=== PATIENT | female | born 1950 | race Caucasian/White ===

== ENCOUNTER 2017-08-10 04:10 | Observation (INO) | payer OTHER ==
[2017-08-10] VITALS (11 sets, daily range): BP systolic 110–148; BP diastolic 57–83; PULSE 55–97; RESP 16–20; TEMP 97.9–98.1; O2SAT 97–100
[~2017-08-10] VITALS: Ht 160 cm; Wt 80.0 kg
[2017-08-10] MEDS ORDERED: LEVO25TA4 PO (04:18)
[2017-08-10] MEDS ORDERED: LISI10TA3 PO (04:18)
[2017-08-10 05:22] LABS: AUTOMATED NEUTROPHIL # 4.1 TH/MM3 (1.8-7.7); BASOPHIL % 0.4 % (0.0-2.0); EOSINOPHIL % 0.7 % (0.0-4.0); HEMATOCRIT 41.6 % (35.0-46.0); HEMO FLAGS DIFF FINAL; LYMPH % 21.1 % (9.0-44.0); LYMPHOCYTE # 1.2 TH/MM3 (1.0-4.8); MEAN CELL VOLUME 96.3 FL (80.0-100.0); MEAN CORPUSCULAR HEMOGLOBIN 32.2 PG (27.0-34.0); MEAN CORPUSCULAR HGB CONC 33.4 % (32.0-36.0); MONO % 4.4 % (0.0-8.0); NEUT % 73.4 % (16.0-70.0); PLATELET COUNT 213 TH/MM3 (150-450); RED BLOOD COUNT 4.32 MIL/MM3 (4.00-5.30); RED CELL DISTRIBUTION WIDTH 13.3 % (11.6-17.2); WHITE BLOOD COUNT 5.6 TH/MM3 (4.0-11.0)
[2017-08-10] MEDS ORDERED: PANTOPRAZOLE SODIUM 40 MG VIAL IV PUSH ONE (05:30)
[2017-08-10] MEDS ORDERED: LORazepam 0.5 MG TAB PO ONE (05:30)
--- NOTE | 2017-08-10 05:32 | PD ---
HPI Chief Complaint: Medical Clearance Time Seen by Provider: 04:30 Travel History International Travel<30 days: No Contact w/Intl Traveler<30days: No Traveled to known affect area: No History of Present Illness HPI Patient is a 67-year-old female who has been having domestic trouble with her daughter. Patient was taking care of her daughter's children while her daughter was on vacation. Apparently there was issues and the teenagers were upset at the limits that the patient was placing on them .. so they called their mother who was on vacation , who then apparently text the children to tell the patient (grandmothr) to get out of the house and leave the kids alone. Patient says she has hypertension and is on lisinopril 10 mg by mouth but the last few days her pressure is been out of control due to the stress that she is having with her daughter and grandchildren . She does not take anything else for her stress or BP . Once long ago she was having stress and they gave her a prescription that made her feel horrible so she threw it away. She does not know what the name of that pill was for her stress... tonight she did not take anything to help relieve her symptoms and her blood pressure she reports diastolic was 110 but she did not take an extra dose or any anything to control her pressure, nor her anxiety ..she comes to ER still having the same symptoms pressure in her chest headache and feeling of palpitations She also feels emotionally stressed. Denies diabetes and she has never had a stress test , no family history of CAD PFSH Past Medical History Hypertension: Yes Dilation and Curettage (D&C): Yes Tubal Ligation: Yes Social History Alcohol Use: Yes Tobacco Use: No Substance Use: No Allergies-Medications (Allergen,Severity, Reaction): Coded Allergies: No Known Allergies (Unverified , 08/10/17) Reported Meds & Prescriptions Reported Meds & Active Scripts Active Buspirone (Buspirone HCl) 5 Mg Tab 5 Mg PO BID Reported Levothyroxine (Levothyroxine Sodium) Unknown Strength Tab Unknown Dose PO DAILY Lisinopril 10 Mg Tab 10 Mg PO DAILY Review of Systems Except as stated in HPI: all other systems reviewed are Neg Cardiovascular: Positive: Chest Pain or Discomfort, Palpitations Physical Exam Narrative GENERAL: On toxic awake alert cooperative conversant SKIN: Warm and dry. HEAD: Atraumatic. Normocephalic. EYES: Pupils equal and round. No scleral icterus. No injection or drainage. ENT: No nasal bleeding or discharge. Mucous membranes pink and moist. NECK: Trachea midline. No JVD. CARDIOVASCULAR: Regular rate and rhythm. Regular rate and rhythm there is one PAC on her EKG but auscultating her heart I do not hear any premature atrial contractions RESPIRATORY: No accessory muscle use. Clear to auscultation. Breath sounds equal bilaterally. GASTROINTESTINAL: Abdomen soft, non-tender, nondistended. Hepatic and splenic margins not palpable. MUSCULOSKELETAL: Extremities without clubbing, cyanosis, or edema. No obvious deformities. NEUROLOGICAL: Awake and alert. No obvious cranial nerve deficits. Motor grossly within normal limits. Five out of 5 muscle strength in the arms and legs. Normal speech. PSYCHIATRIC: Appropriate mood and affect; insight and judgment normal. Data Data Last Documented VS Orders Orders Aspirin Chew (Aspirin Chew) (08/10/17 09:00) Complete Blood Count With Diff (08/10/17 05:00) Comprehensive Metabolic Panel (08/10/17 05:00) Troponin I (08/10/17 05:00) Lipase (08/10/17 05:00) Lorazepam (Ativan) (08/10/17 05:30) Pantoprazole Inj (Protonix Inj) (08/10/17 05:30) Place In Observation (08/10/17 06:24) Activity Bed Rest With Brp (08/10/17 06:24) Vital Signs (Adult) Q4H (08/10/17 06:24) Cardiac Rhythm .As Directed (08/10/17 06:24) Notify Dr: Other .PRN (08/10/17 06:24) Notify Dr. Parameters (08/10/17 06:24) Resp Oxygen Nasal Cannula (08/10/17 ) Electrocardiogram (08/10/17 04:30) Electrocardiogram (08/10/17 07:30) ^ Obtain (08/10/17 06:24) Sodium Chloride 0.9% Flush (Ns Flush) (08/10/17 06:30) Sodium Chloride 0.9% Flush (Ns Flush) (08/10/17 09:00) Ondansetron Inj (Zofran Inj) (08/10/17 06:30) Famotidine (Pepcid) (08/10/17 09:00) Cutting Machine Operator / Telemetry KENIA.Q8H (08/10/17 06:24) Admit Order (Ed Use Only) (08/10/17 06:34) Labs Laboratory Tests Test 08/10/17 05:00 White Blood Count 5.6 TH/MM3 Red Blood Count 4.32 MIL/MM3 Hemoglobin 13.9 GM/DL Hematocrit 41.6 % Mean Corpuscular Volume 96.3 FL Mean Corpuscular Hemoglobin 32.2 PG Mean Corpuscular Hemoglobin Concent 33.4 % Red Cell Distribution Width 13.3 % Platelet Count 213 TH/MM3 Mean Platelet Volume 7.7 FL Neutrophils (%) (Auto) 73.4 % Lymphocytes (%) (Auto) 21.1 % Monocytes (%) (Auto) 4.4 % Eosinophils (%) (Auto) 0.7 % Basophils (%) (Auto) 0.4 % Neutrophils # (Auto) 4.1 TH/MM3 Lymphocytes # (Auto) 1.2 TH/MM3 Monocytes # (Auto) 0.2 TH/MM3 Eosinophils # (Auto) 0.0 TH/MM3 Basophils # (Auto) 0.0 TH/MM3 CBC Comment DIFF FINAL Differential Comment Blood Urea Nitrogen 14 MG/DL Creatinine 0.72 MG/DL Random Glucose 101 MG/DL Total Protein 7.5 GM/DL Albumin 4.0 GM/DL Calcium Level 9.0 MG/DL Alkaline Phosphatase 76 U/L Aspartate Amino Transf (AST/SGOT) 38 U/L Alanine Aminotransferase (ALT/SGPT) 46 U/L Total Bilirubin 0.5 MG/DL Sodium Level 141 MEQ/L Potassium Level 3.7 MEQ/L Chloride Level 105 MEQ/L Carbon Dioxide Level 27.8 MEQ/L Anion Gap 8 MEQ/L Estimat Glomerular Filtration Rate 80 ML/MIN Troponin I LESS THAN 0.02 NG/ML Lipase 94 U/L [facility] Medical Decision Making Medical Screen Exam Complete: Yes Emergency Medical Condition: Yes Interpretation(s) EKG NSR with 1 PAC rate 84 BPM Differential Diagnosis Patient is having an anxiety attack versus stress reaction versus ischemic myocardial event versus pneumonia his other Narrative Course EKG is normal sinus rhythm exam is benign heart regular rate and rhythm lungs clear to auscultation BP is 148/72 heart rate was 65 BPM and trop negative , Diagnosis Primary Impression: Stress reaction Additional Impression: Hypertension Qualified Codes: I10 - Essential (primary) hypertension Admitting Information Admitting Physician Requests: Observation Scripts Buspirone (Buspirone) 5 Mg Tab 5 MG PO BID for Anxiety, #20 TAB 1 Refill Prov: Jamie Corbett MD 08/10/17 Condition: Stable Jamie Corbett MD Aug 10, 2017 05:32
[2017-08-10 05:44] LABS: ANION GAP 8 MEQ/L (5-15); AST (GOT) 38 U/L (15-37); BICARBONATE 27.8 MEQ/L (21.0-32.0); BLOOD UREA NITROGEN 14 MG/DL (7-18); CHLORIDE 105 MEQ/L (98-107); GLOMERULAR FILTRATION RATE 80 ML/MIN (>89); POTASSIUM 3.7 MEQ/L (3.5-5.1); SODIUM (NA) 141 MEQ/L (136-145)
[2017-08-10 05:46] LABS: ALT (GPT) 46 U/L (10-53)
[2017-08-10 05:50] LABS: ALKALINE PHOSPHATASE 76 U/L (45-117); TOTAL BILIRUBIN ADULT 0.5 MG/DL (0.2-1.0)
[2017-08-10] MEDS ORDERED: SODIUM CHLORIDE 0.9% FLUSH 10 ML FLUSH IV FLUSH PRN (06:30)
[2017-08-10] MEDS ORDERED: ONDANSETRON HCL 4 MG/2 ML VIAL IV PUSH PRN (06:30)
[2017-08-10] MEDS ORDERED: BUSP5TAB PO (06:33)
[2017-08-10] MEDS ORDERED: NITROGLYCERIN 0.4 MG SL 25 TABS/BTL SL PRN (08:00)
[2017-08-10] MEDS ORDERED: ACETAMINOPHEN 500 MG CPLT PO PRN (08:00)
[2017-08-10] MEDS ORDERED: ASPIRIN 81 MG CHEW TAB CHEW SCH (09:00)
--- NOTE | 2017-08-10 09:01 | HHI.HP ---
HPI Primary Care Physician No Primary Care Physician Chief Complaint chest pain History of Present Illness 67-year-old female with history of hypertension presents to emergency room for further evaluation of chest pain. Onset 3 AM. States she was not sleeping well last night. Location left and right anterior chest. Characterized as "discomfort." Difficult for her to describe pain. Severity moderate. Radiation to left side neck. Duration one hour. Associated symptoms included nausea and "shaking." Denied vomiting, dyspnea, or diaphoresis. Precipitating factors she relates to current situational stress causing blood pressure to be elevated. No known relieving factors, stating discomfort went away after blood pressure within normal limits. Review of Systems General: No fatigue,weakness, fever, chills, recent illness, or change in appetite. Has been in her general state of health. HEENT: No [place], no vision changes, no nasal congestion or drainage, no dysphasia CV: As stated above. No current chest pain, pressure, or discomfort. No palpitations or dizziness. RESP: No SOB, cough, wheeze, or recent URI. GI: No nausea, vomiting, bowel changes, diarrhea, constipation, pain, distention , melena, or blood in the stool. : No dysuria, urgency, frequency EXT: No lower leg edema, no paraesthesias MS: No discomfort or change in ROM NEURO: No difficulty with balance, LOC, motor/sensory deficits PSYCH: Current situational stress and history of anxiety. No depression SKIN: No rashes, no concerning lesions Past Family Social History Allergies: Coded Allergies: No Known Allergies (Unverified , 08/10/17) Past Medical History Hypertension, anxiety Past Surgical History Tubal ligation Reported Medications Reported Meds & Active Scripts Active Buspirone (Buspirone HCl) 5 Mg Tab 5 Mg PO BID Levothyroxine (Levothyroxine Sodium) Unknown Strength Tab Unknown Dose (THINKS MAY BE 75MCG, HAS RAN OUT OF MEDICATIONS 2 DAYS AGO) PO DAILY Lisinopril 10 Mg Tab 10 Mg PO DAILY Active Ordered Medications Current Medications Medications (Trade) Dose Ordered Sig/Ct Route Start Time Stop Time Status Last Admin (NS Flush) 2 ml UNSCH PRN IV FLUSH 08/10/17 06:30 (NS Flush) 2 ml BID IV FLUSH 08/10/17 09:00 (Zofran Inj) 4 mg Q6H PRN IV PUSH 08/10/17 06:30 (Pepcid) 20 mg BID PO 08/10/17 09:00 (Tylenol) 500 mg Q4H PRN PO 08/10/17 08:00 (Nitrostat Sl) 0.4 mg Q5M PRN SL 08/10/17 08:00 (Aspirin) 325 mg DAILY PO 08/10/17 09:00 Family History Noncontributory for early onset cardiovascular disease. Social History Known hypertension. No known coronary artery disease, diabetes, or hyperlipidemia. Lifelong nonsmoker. Denies any alcohol. Endorses a sedentary lifestyle, however reports she "stays busy." Past cardiac testing None Physical Exam Vital Signs Vital Signs Date Time Temp Pulse Resp B/P (MAP) Pulse Ox O2 Delivery O2 Flow Rate FiO2 08/10/17 08:13 97.9 60 20 110/60 (77) 98 08/10/17 07:32 08/10/17 07:15 66 16 139/63 (88) 98 Room Air 08/10/17 06:31 21 08/10/17 06:01 67 20 119/57 (77) 97 Room Air 08/10/17 05:16 62 20 148/72 (97) 100 Room Air 08/10/17 04:16 98.0 97 18 148/83 (104) 99 Room Air Physical Exam GENERAL: Alert WN, WD, NAD, female HEAD: NC, AT EYES: Sclera clear, conjunctiva without injection ENT: Mucous membranes pink and moist NECK: Supple, no masses, trachea midline CV: RRR, without murmur, rub, gallop, no JVD, S1-S2 no S3-S4. No carotid bruits. RESP: Clear lungs throughout bilateral, no crackles, wheeze, rhonchi, symmetrical chest rise, nonlabored, able to speak in full sentences ABD: Soft, NT, ND, no masses, positive bowel tones EXT: Pulses +24, no dependent edema MS: Normal tone 4 extremities, nontender, no obvious deformities, full range of motion NEURO: CN II through CN XII grossly intact, motor strength 5/5 PSYCH: A+O 3, mildly anxious, appropriate speech, mood, and affect. Questionable insight and judgment, contraindicating herself regarding medicine and procedures. Stating she wishes doctors could just find other means to detect cancer, using example of colonoscopy, stating she does not want to use prep therefore not having procedure. Questioning thyroid levels and verbalizes upset thyroid levels "always changing" and does not believe missing thyroid medication would alter levels. Endorses holistic doctors and herbal medications. Voices upset her MD will not "do something about my cholesterol," while stating in same sentence if prescribed she would not take statin because she researched the harmful effects of drug. SKIN: Normal turgor, normal texture, no lesions, no rashes, brisk cap refill, even hair distribution Laboratory Laboratory Tests Test 08/10/17 05:00 08/10/17 08:10 White Blood Count 5.6 Red Blood Count 4.32 Hemoglobin 13.9 Hematocrit 41.6 Mean Corpuscular Volume 96.3 Mean Corpuscular Hemoglobin 32.2 Mean Corpuscular Hemoglobin Concent 33.4 Red Cell Distribution Width 13.3 Platelet Count 213 Mean Platelet Volume 7.7 Neutrophils (%) (Auto) 73.4 Lymphocytes (%) (Auto) 21.1 Monocytes (%) (Auto) 4.4 Eosinophils (%) (Auto) 0.7 Basophils (%) (Auto) 0.4 Neutrophils # (Auto) 4.1 Lymphocytes # (Auto) 1.2 Monocytes # (Auto) 0.2 Eosinophils # (Auto) 0.0 Basophils # (Auto) 0.0 CBC Comment DIFF FINAL Differential Comment Blood Urea Nitrogen 14 Creatinine 0.72 Random Glucose 101 Total Protein 7.5 Albumin 4.0 Calcium Level 9.0 Alkaline Phosphatase 76 Aspartate Amino Transf (AST/SGOT) 38 Alanine Aminotransferase (ALT/SGPT) 46 Total Bilirubin 0.5 Sodium Level 141 Potassium Level 3.7 Chloride Level 105 Carbon Dioxide Level 27.8 Anion Gap 8 Estimat Glomerular Filtration Rate 80 Troponin I LESS THAN 0.02 Lipase 94 Result Diagram: 08/10/17 0500 08/10/17 0500 Course EKG Sinus rhythm, normal axis, no ST or T-segment changes Caprini VTE Risk Assessment Caprini VTE Risk Assessment: Mod/High Risk (score >= 2) Caprini Risk Assessment Model Point Value = 1 Point Value = 2 Point Value = 3 Point Value = 5 Age 41-60 Minor surgery BMI > 25 kg/m2 Swollen legs Varicose veins or History of unexplained or recurrent spontaneous Oral contraceptives or hormone replacement Sepsis (< 1 month) Serious lung disease, including pneumonia (< 1 month) Abnormal pulmonary function Acute myocardial infarction Congestive heart failure (< 1 month) History of inflammatory bowel disease Medical patient at bed rest Age 61-74 Arthroscopic surgery Major open surgery (> 45 min) Laparoscopic surgery (> 45 min) Malignancy Confined to bed (> 72 hours) Immobilizing plaster cast Central venous access Age >= 75 History of VTE Family history of VTE Factor V Leiden Prothrombin [id number] Lupus anticoagulant Anticardiolipin antibodies Elevated serum homocysteine Heparin-induced thrombocytopenia Other congenital or acquired thrombophilia Stroke (< 1 month) Elective arthroplasty Hip, pelvis, or leg fracture Acute spinal cord injury (< 1 month) Prophylaxis Regimen Total Risk Factor Score Risk Level Prophylaxis Regimen 0-1 Low Early ambulation 2 Moderate Order ONE of the following: *Sequential Compression Device (SCD) *Heparin 5000 units SQ BID 3-4 Higher Order ONE of the following medications: *Heparin 5000 units SQ TID *Enoxaparin/Lovenox 40 mg SQ daily (WT < 150 kg, CrCl > 30 mL/min) *Enoxaparin/Lovenox 30 mg SQ daily (WT < 150 kg, CrCl > 10-29 mL/min) *Enoxaparin/Lovenox 30 mg SQ BID (WT < 150 kg, CrCl > 30 mL/min) AND/OR *Sequential Compression Device (SCD) 5 or more Highest Order ONE of the following medications: *Heparin 5000 units SQ TID (Preferred with Epidurals) *Enoxaparin/Lovenox 40 mg SQ daily (WT < 150 kg, CrCl > 30 mL/min) *Enoxaparin/Lovenox 30 mg SQ daily (WT < 150 kg, CrCl > 10-29 mL/min) *Enoxaparin/Lovenox 30 mg SQ BID (WT < 150 kg, CrCl > 30 mL/min) AND *Sequential Compression Device (SCD) Assessment and Plan Assessment and Plan #1 Chest pain-admitted chest pain center. Rule out with 3 sets of EKGs and cardiac enzymes. Will be seen and evaluated by Dr. Thony Paez. Discussed likelihood of completing exercise stress test later this afternoon. Patient the plan of care. #2 Hypertension-continue lisinopril Discussed in length a balance between medicine and holistic medicine can be found, however compromise also required with her. Discussed benefits of cholesterol medications in length, if her provider determines the need. Nivia Bach Aug 10, 2017 09:01
[2017-08-10] MEDS ORDERED: ACETAMINOPHEN 500 MG CPLT PO ONE (09:30)
[2017-08-10] MEDS: ASPIRIN 325 MG TAB PO SCH (10:34)
[2017-08-10] MEDS: SODIUM CHLORIDE 0.9% FLUSH 10 ML FLUSH IV FLUSH SCH ×2 (10:35→20:54)
[2017-08-10] MEDS: FAMOTIDINE 20 MG TAB PO SCH ×2 (10:35→20:53)
[2017-08-10] MEDS: LISINOPRIL 10 MG TAB PO SCH (14:00)
[2017-08-10] MEDS ORDERED: ALPRAZolam 0.25 MG TAB PO PRN (18:45)
[2017-08-11 00:10] VITALS: BP 125/60; PULSE 56; RESP 19; TEMP 97.9; O2SAT 98
[2017-08-11 03:22] VITALS: BP 119/65; PULSE 62; RESP 18; TEMP 98; O2SAT 97
[2017-08-11 04:32] VITALS: PULSE 72
[2017-08-11] MEDS ORDERED: LEVOTHYROXINE SODIUM 75 MCG TAB PO SCH (06:00)
[2017-08-11 07:07] VITALS: O2SAT 94
[2017-08-11 07:19] VITALS: PULSE 66
[2017-08-11 07:29] VITALS: BP 131/66; PULSE 64; RESP 20; TEMP 98.5; O2SAT 96
[2017-08-11] MEDS: SODIUM CHLORIDE 0.9% FLUSH 10 ML FLUSH IV FLUSH SCH (08:35)
[2017-08-11] MEDS: FAMOTIDINE 20 MG TAB PO SCH (08:38)
[2017-08-11] MEDS: ASPIRIN 325 MG TAB PO SCH (08:38)
[2017-08-11] MEDS: LISINOPRIL 10 MG TAB PO SCH (08:38)
--- NOTE | 2017-08-11 09:25 | EKG ---
Date Performed: 08/10/2017 Time Performed: 11:22:17 PTAGE: 67 years EKG: SINUS BRADYCARDIA BORDERLINE ECG PREVIOUS TRACING : 08/10/2017 08.32 DOCTOR: Kojo Encarnacion Interpretating Date/Time 08/11/2017 09:24:58
--- NOTE | 2017-08-11 09:31 | EKG ---
Date Performed: 08/10/2017 Time Performed: 08:32:16 PTAGE: 67 years EKG: SINUS BRADYCARDIA LOW QRS VOLTAGE IN PRECORDIAL LEADS BORDERLINE ECG PREVIOUS TRACING : 08/10/2017 04.27 DOCTOR: Kojo Encarnacion Interpretating Date/Time 08/11/2017 09:30:18
--- NOTE | 2017-08-11 09:40 | EKG ---
Date Performed: 08/10/2017 Time Performed: 04:27:28 PTAGE: 67 years EKG: Sinus rhythm WITH MARKED SINUS ARRHYTHMIA LOW QRS VOLTAGE IN PRECORDIAL LEADS BORDERLINE ECG NO PREVIOUS TRACING DOCTOR: Kojo Encarnacion Interpretating Date/Time 08/11/2017 09:38:57
--- NOTE | 2017-08-11 13:47 | RADRPT ---
EXAM DATE/TIME: 08/11/2017 10:42 [facility] COMPARISON: No previous studies available for comparison. INDICATIONS : Chest pain. Angina DOSE: 25.4 mCi Tc99m Myoview at stress 8.6 mCi Tc99m Myoview at rest REST HEART RATE: 96 BPM TARGET HEART RATE: 129 BPM MAX HEART RATE: 138 BPM REST BLOOD PRESSURE: 158/92 mmHg MAX BLOOD PRESSURE: 172/80 mmHg EJECTION FRACTION: 69% MEDICAL HISTORY : Hypertension. SURGICAL HISTORY : Tubal ligation. ENCOUNTER: Initial ACUITY: 1 day PAIN SCALE: 4/10 LOCATION: Bilateral chest TECHNIQUE: The patient underwent upright treadmill exercise in the chest pain center. Continuous ECG tracing wa s monitored during stress. Gated SPECT imaging was performed after stress, and conventional SPECT im aging was performed at rest. The examination was performed on a SPECT/CT scanner, both attenuation-c orrected and non-corrected datasets were reviewed. FINDINGS: DISTRIBUTION: The maximum perfused segment at stress is in the septal wall. PERFUSION STUDY: The pattern of perfusion at stress is within normal limits. GATED STUDY: There is intact wall motion and thickening without hypokinetic or dyskinetic segments. CONCLUSION: 1. No focal stress-induced perfusion defect. 2. No focal wall motion abnormality with normal EF of 69%. RISK CATEGORY: Low (<1% Annual Mortality Rate) Nate Kirk MD on August 11, 2017 at 13:44 Board Certified Radiologist. This report was verified electronically.
--- NOTE | 2017-08-11 14:04 | HHI.DCPOC ---
Discharge Care Plan Diagnosis: (1) Atypical chest pain (2) Hypertension (3) Anxiety Goals to Promote Your Health * To prevent worsening of your condition and complications * To maintain your health at the optimal level Directions to Meet Your Goals Take your medications as prescribed Follow your dietary instruction Follow activity as directed Keep your appointments as scheduled Take your immunizations and boosters as scheduled If your symptoms worsen call your PCP, if no PCP go to Urgent Care Center or Emergency Room Smoking is Dangerous to Your Health. Avoid second hand smoke Call the 24-hour hour crisis hotline for domestic abuse at Nivia Bach Aug 11, 2017 14:04
--- NOTE | 2017-08-11 16:05 | TR ---
Date Performed: 08/11/2017 Time Performed: 11:57:38 DOCTOR: Thony Paez DRUG LIST: CLINICAL HISTORY: CHEST PAIN REASON FOR TEST: Chest pain REASON FOR ENDING: OBSERVATION: CONCLUSION: Linus protocol completed. Stopped sec to exceeding target heart rate and leg fatigue . Maximum EC=245 Target HR Achieved=91.0% Maximum OE=733/92 Target YB=036. No reprod chest pain. No e ctopy. Fair exercise tolerance. Normal bp response. Recovery quick and unremarkable. Nuclear images p ending. COMMENTS:
--- NOTE | 2017-08-11 16:07 | TR ---
Date Performed: 08/10/2017 Time Performed: 18:02:23 DOCTOR: Thony Paez DRUG LIST: CLINICAL HISTORY: REASON FOR TEST: Chest pain REASON FOR ENDING: OBSERVATION: CONCLUSION: Linus protocol completed. Stopped sec to reaching target heart rate and leg fatigue. Maximum WM=782 Target HR Achieved=88.0% Maximum WK=351/92 Target QH=172. No repord chest pain. No ec topy. No st segment changes. Poor exercise tolerance. Normal bp response. Recovery quick and unremark able. COMMENTS:
== END 2017-08-11 15:47 | disposition home or self-care (01) ==
LOC: NEPE 04:10 → NEDA 06:38 → NEPFCDU 07:40
PROVIDERS: ADMIT Internal Medicine Cardiovascular Disease; ATTEND Internal Medicine Cardiovascular Disease
DX: R07.89 Other chest pain (principal); R00.1 Bradycardia, unspecified; I49.9 Cardiac arrhythmia, unspecified; I20.9 Angina pectoris, unspecified; I10 Essential (primary) hypertension; F43.9 Reaction to severe stress, unspecified; F41.9 Anxiety disorder, unspecified; Z79.899 Other long term (current) drug therapy
CPT/HCPCS: 78452; 80053; 83690; 84443; 84484; 85025; 93005; 93017; 96374; 99285; A9502; C9113; G0378